=== PATIENT | female | born 2000 | race Caucasian/White ===

== ENCOUNTER 2025-01-26 15:49 | Emergency (ER) | payer OTHER | END 2025-01-26 17:33 | disposition home or self-care (01) | LOC: CSHERS 15:49 | DX: O9A.211 Injury, poisoning and certain other consequences of external causes complicating pregnancy, first trimester (principal); T75.4XXA Electrocution, initial encounter; O99.891 Other specified diseases and conditions complicating pregnancy; R00.0 Tachycardia, unspecified; Z3A.09 9 weeks gestation of pregnancy | CPT/HCPCS: 93005; 99283 ==

== ENCOUNTER 2025-01-27 13:22 | Outpatient (CLI) | payer OTHER | END 2025-01-27 13:23 | disposition home or self-care (01) | LOC: CSHLAB 13:22 | PROVIDERS: ATTEND Student in an Organized Health Care Education/Training Program | DX: Z01.818 Encounter for other preprocedural examination (principal); O02.1 Missed abortion | CPT/HCPCS: 85027; 86850; 86900; 86901; 93005; 93010 ==